=== PATIENT | male | born 1970 | race Caucasian/White ===

== ENCOUNTER 2020-07-31 18:35 | Emergency (ER) | payer OTHER ==
[~2020-07-31] VITALS: Ht 177.8 cm; Wt 77.1 kg
[2020-07-31] MEDS ORDERED: MUCINEX100 MG PO (18:54)
[2020-07-31] MEDS ORDERED: ZYRTEC10 M3 PO (18:54)
[2020-07-31] MEDS ORDERED: TOPAMAX200 MG PO (18:54)
[2020-07-31] MEDS ORDERED: LIPITOR80 MG GT (18:54)
[2020-07-31] MEDS ORDERED: FLONASE ALLERG9.9 ML NAS (18:55)
== END 2020-07-31 20:18 | disposition home or self-care (01) ==
LOC: ED 18:35
DX: J20.9 Acute bronchitis, unspecified (principal); G40.909 Epilepsy, unspecified, not intractable, without status epilepticus; Z88.8 Allergy status to other drugs, medicaments and biological substances; Z79.899 Other long term (current) drug therapy
CPT/HCPCS: 71046; 99283-25; U0003

== ENCOUNTER 2020-08-03 12:57 | Emergency (ER) | payer OTHER ==
[~2020-08-03] VITALS: Ht 177.8 cm; Wt 77.1 kg
[~2020-08-03 12:57] MED LIST: FLONASE ALLERG9.9 ML NAS; LIPITOR80 MG GT; MUCINEX100 MG PO; TOPAMAX200 MG PO; ZYRTEC10 M3 PO
--- OUTSIDE RECORDS SUMMARY | 2020-08-03 13:04 | XMS ---
PreManage Notification: DAPHNE BENJAMIN Security Vulnerability Researcher Events No recent Security Events currently on file CRITERIA MET - [facility] - 2 Visits in 30 Days CARE PROVIDERS JESENIA COKER Internal Medicine Current PHONE: Unknown JAMI LUCIANO [facility] Current PHONE: [phone] Deidre has no Care Guidelines for this patient. EMike VISIT COUNT (12 MO.) [address] [place] [address] TOTAL 2 NOTE: Visits indicate total known visits. ED/UCC VISIT TRACKING (12 MO.) 08/03/2020 12:58 NEELAM Gregory [place] TYPE: Emergency COMPLAINT: - COUGH, SOB, WEEZING 07/31/2020 18:36 NEELAM Gregory [place] TYPE: Emergency COMPLAINT: - COUGHING,SOB DIAGNOSES: - Cough - Other equipment operator intermodal yard (current) drug therapy - Epilepsy, unspecified, not intractable, without status epilepticus - Acute bronchitis, unspecified - Allergy status to other drugs, medicaments and biological substances INPATIENT VISIT TRACKING (12 MO.) No inpatient visits to display in this time frame [id number]
[2020-08-03] MEDS ORDERED: LEVOFLOXACIN750 MG PO (15:04)
== END 2020-08-03 15:29 | disposition home or self-care (01) ==
LOC: ED 12:57
DX: J20.9 Acute bronchitis, unspecified (principal); G40.909 Epilepsy, unspecified, not intractable, without status epilepticus; E78.00 Pure hypercholesterolemia, unspecified; Z88.8 Allergy status to other drugs, medicaments and biological substances; Z79.899 Other long term (current) drug therapy
CPT/HCPCS: 83880; 85025; 85379; 99284

== ENCOUNTER 2020-09-14 10:48 | Emergency (ER) | payer OTHER ==
[~2020-09-14] VITALS: Ht 177.8 cm; Wt 77.1 kg
[~2020-09-14 10:48] MED LIST changes: +DOXYCYCLINE HY100 MG PO; +LEVOFLOXACIN750 MG PO; +PREDNISONE20 MG PO; +TESSALON PERLE100 MG PO
--- OUTSIDE RECORDS SUMMARY | 2020-09-14 10:50 | XMS ---
PreManage Notification: DAPHNE BENJAMIN Security Locomotive Firer Events No recent Security Events currently on file CRITERIA MET - [facility] - 2 Visits in 30 Days CARE PROVIDERS JESENIA COKER Internal Medicine Current PHONE: Unknown JAMI LUCIANO [facility] Current PHONE: [phone] Deidre has no Care Guidelines for this patient. EMike VISIT COUNT (12 MO.) [address] [place] [address] TOTAL 4 NOTE: Visits indicate total known visits. ED/UCC VISIT TRACKING (12 MO.) 09/14/2020 10:48 NEELAM Gregory [place] TYPE: Emergency COMPLAINT: - RINGING EARS, CONFUSION 08/15/2020 08:07 NEELAM Gregory [place] TYPE: Emergency COMPLAINT: - COUGH, SOB DIAGNOSES: - Bronchitis, not specified as acute or chronic - Cough - Allergy status to other antibiotic agents - Other intermodal customer service (current) drug therapy - Epilepsy, unspecified, not intractable, without status epilepticus - Pure hypercholesterolemia, unspecified - Localized enlarged lymph nodes - Allergy status to other drugs, medicaments and biological substances 08/03/2020 12:58 NEELAM [place] TYPE: Emergency COMPLAINT: - COUGH, SOB, WEEZING DIAGNOSES: - Allergy status to other drugs, medicaments and biological substances - Other chcf (current) drug therapy - Acute bronchitis, unspecified - Shortness of breath - Epilepsy, unspecified, not intractable, without status epilepticus - Pure hypercholesterolemia, unspecified 07/31/2020 18:36 NEELAM Gregory [place] TYPE: Emergency COMPLAINT: - COUGHING,SOB DIAGNOSES: - Cough - Other intermodal customer service (current) drug therapy - Epilepsy, unspecified, not intractable, without status epilepticus - Acute bronchitis, unspecified - Allergy status to other drugs, medicaments and biological substances INPATIENT VISIT TRACKING (12 MO.) No inpatient visits to display in this time frame [id number]
[2020-09-14] MEDS ORDERED: ALBUTEROL2.5 MG/3 M INH (10:58)
[2020-09-14] MEDS ORDERED: AZELASTINE205.5 MCG/ NAS (10:58)
[2020-09-14] MEDS ORDERED: COMBIVENT RESPIM4 GM INH (10:59)
[2020-09-14] MEDS ORDERED: ADVAIR HFA 115-12 GM INH (10:59)
== END 2020-09-14 13:44 | disposition home or self-care (01) ==
LOC: ED 10:48
DX: T16.1XXA Foreign body in right ear, initial encounter (principal); H93.11 Tinnitus, right ear; E78.00 Pure hypercholesterolemia, unspecified; G40.909 Epilepsy, unspecified, not intractable, without status epilepticus; Z88.8 Allergy status to other drugs, medicaments and biological substances; Z88.1 Allergy status to other antibiotic agents; Z79.899 Other long term (current) drug therapy
CPT/HCPCS: 69200; 70450; 80053; 80201; 81001; 83735; 85025; 99283-25

== ENCOUNTER 2020-12-05 16:03 | Emergency (ER) | payer OTHER ==
[~2020-12-05] VITALS: Ht 177.8 cm; Wt 79.4 kg
[~2020-12-05 16:03] MED LIST changes: +ADVAIR HFA 115-12 GM INH; +ALBUTEROL2.5 MG/3 M INH; +AZELASTINE205.5 MCG/ NAS; +COMBIVENT RESPIM4 GM INH
--- OUTSIDE RECORDS SUMMARY | 2020-12-05 16:12 | XMS ---
PreManage Notification: DAPHNE BENJAMIN Security Taxicab Dispatcher Events No recent Security Events currently on file CRITERIA MET - ED - Positive COVID-19 Lab Result - [facility] CARE PROVIDERS JESENIA COKER Internal Medicine Current PHONE: Unknown JAMI LUCIANO [facility] Current PHONE: [phone] Deidre has no Care Guidelines for this patient. EMike VISIT COUNT (12 MO.) Krysta Feliciano TOTAL 5 NOTE: Visits indicate total known visits. ED/UCC VISIT TRACKING (12 MO.) 12/05/2020 16:04 NEELAM Gregory [place] TYPE: Emergency COMPLAINT: - COUGH 09/14/2020 10:48 NEELAM Gregory [place] TYPE: Emergency COMPLAINT: - FB,RINGING EARS, CONFUSION DIAGNOSES: - Tinnitus, right ear - Tinnitus, right ear - Foreign body in right ear, initial encounter - Allergy status to other drugs, medicaments and biological substances - Allergy status to other antibiotic agents - Other detention (current) drug therapy - Pure hypercholesterolemia, unspecified - Foreign body in right ear, initial encounter - Epilepsy, unspecified, not intractable, without status epilepticus 08/15/2020 08:07 [place] TYPE: Emergency COMPLAINT: - COUGH, SOB DIAGNOSES: - Bronchitis, not specified as acute or chronic - Cough - Allergy status to other antibiotic agents - Other detention (current) drug therapy - Epilepsy, unspecified, not intractable, without status epilepticus - Pure hypercholesterolemia, unspecified - Localized enlarged lymph nodes - Allergy status to other drugs, medicaments and biological substances 08/03/2020 12:58 NEELAM Gregory [place] TYPE: Emergency COMPLAINT: - COUGH, SOB, WEEZING DIAGNOSES: - Allergy status to other drugs, medicaments and biological substances - Other petroleum terminal plant operator (current) drug therapy - Acute bronchitis, unspecified - Shortness of breath - Epilepsy, unspecified, not intractable, without status epilepticus - Pure hypercholesterolemia, unspecified 07/31/2020 18:36 [facility] [place] TYPE: Emergency COMPLAINT: - COUGHING,SOB DIAGNOSES: - Cough - Other detention (current) drug therapy - Epilepsy, unspecified, not intractable, without status epilepticus - Acute bronchitis, unspecified - Allergy status to other drugs, medicaments and biological substances INPATIENT VISIT TRACKING (12 MO.) No inpatient visits to display in this time frame [id number]
[2020-12-05] MEDS ORDERED: LIPITOR40 MG PO (16:21)
[2020-12-05] MEDS ORDERED: AMOXICILLIN500 MG PO (18:19)
== END 2020-12-05 18:35 | disposition home or self-care (01) ==
LOC: ED 16:03
DX: J01.90 Acute sinusitis, unspecified (principal); B96.89 Other specified bacterial agents as the cause of diseases classified elsewhere; R05 Cough; G40.909 Epilepsy, unspecified, not intractable, without status epilepticus; E78.00 Pure hypercholesterolemia, unspecified; E78.5 Hyperlipidemia, unspecified; Z88.8 Allergy status to other drugs, medicaments and biological substances; Z79.899 Other long term (current) drug therapy
CPT/HCPCS: 71045; 99283-25

== ENCOUNTER 2021-04-05 19:52 | Emergency (ER) | payer OTHER ==
[~2021-04-05 19:52] MED LIST changes: +AMOXICILLIN500 MG PO; +LIPITOR40 MG PO
--- NOTE | 2021-04-06 18:14 | EKG ---
[facility] [address] [place], [place] [address] Signed Normal sinus rhythm Normal ECG When compared with ECG of 15-AUG-2020 09:18, No significant change was found Confirmed by VASHTI SHIRLEY MD ([id number]) on 04/06/2021 6:14:04 PM Electronically Signed By: VASHTI SHIRLEY MD 04/06/21 1814 PATIENT NAME: CASSIDYSAMMIEDAPHNE SYLVIA Electrocardiogram DATE OF : 68 PHYSICIAN: VASHTI SHIRLEY MD REPORT #: [id number] REPORT IS CONFIDENTIAL AND NOT TO BE RELEASED WITHOUT AUTHORIZATION
== END 2021-04-05 23:36 | disposition home or self-care (01) ==
LOC: ED 19:52
DX: R05.9 Cough, unspecified (principal); E78.00 Pure hypercholesterolemia, unspecified; G40.909 Epilepsy, unspecified, not intractable, without status epilepticus; E78.5 Hyperlipidemia, unspecified; Z88.8 Allergy status to other drugs, medicaments and biological substances; Z79.899 Other long term (current) drug therapy; Z20.822 Contact with and (suspected) exposure to COVID-19
CPT/HCPCS: 71045; 80053; 83735; 84484; 85025; 93005; 93010; 99284-25; C9803; U0003

== ENCOUNTER 2021-05-22 19:03 | Emergency (ER) | payer OTHER ==
[~2021-05-22] VITALS: Ht 175.3 cm; Wt 93.8 kg
--- OUTSIDE RECORDS SUMMARY | 2021-05-22 19:10 | XMS ---
PreManage Notification: DAPHNE BENJAMIN Security Die Grinder Events No recent Security Events currently on file CRITERIA MET - ED - Positive COVID-19 Lab Result - [facility] CARE PROVIDERS JESENIA COKER Internal Medicine Current PHONE: Unknown JAMI LUCIANO [facility] Current PHONE: Unknown Deidre has no Care Guidelines for this patient. EMike VISIT COUNT (12 MO.) Clyde Feliciano TOTAL 7 NOTE: Visits indicate total known visits. ED/UCC VISIT TRACKING (12 MO.) 05/22/2021 19:03 NEELAM Gregory [place] TYPE: Emergency COMPLAINT: - COLD SYMPTOMS 04/05/2021 19:52 NEELAM Gregory [place] TYPE: Emergency COMPLAINT: - SOB,COUGH DIAGNOSES: - Epilepsy, unspecified, not intractable, without status epilepticus - Other termination clerk (current) drug therapy - COUGH, UNSPECIFIED - Allergy status to other drugs, medicaments and biological substances - Hyperlipidemia, unspecified - Pure hypercholesterolemia, unspecified 12/05/2020 16:04 [facility] [place] TYPE: Emergency COMPLAINT: - COUGH DIAGNOSES: - Epilepsy, unspecified, not intractable, without status epilepticus - Other specified bacterial agents as the cause of diseases classified elsewhere - Other termination clerk (current) drug therapy - Hyperlipidemia, unspecified - Allergy status to other drugs, medicaments and biological substances - Cough - Pure hypercholesterolemia, unspecified - Acute sinusitis, unspecified 09/14/2020 10:48 [facility] [place] TYPE: Emergency COMPLAINT: - FB,RINGING EARS, CONFUSION DIAGNOSES: - Tinnitus, right ear - Tinnitus, right ear - Foreign body in right ear, initial encounter - Allergy status to other drugs, medicaments and biological substances - Allergy status to other antibiotic agents - Other mcfp (current) drug therapy - Pure hypercholesterolemia, unspecified - Foreign body in right ear, initial encounter - Epilepsy, unspecified, not intractable, without status epilepticus 08/15/2020 08:07 [facility] [place]inn [place] TYPE: Emergency COMPLAINT: - COUGH, SOB DIAGNOSES: - Bronchitis, not specified as acute or chronic - Cough - Allergy status to other antibiotic agents - Other termination clerk (current) drug therapy - Epilepsy, unspecified, not intractable, without status epilepticus - Pure hypercholesterolemia, unspecified - Localized enlarged lymph nodes - Allergy status to other drugs, medicaments and biological substances 08/03/2020 12:58 NEELAM Gregory [place] TYPE: Emergency COMPLAINT: - COUGH, SOB, WEEZING DIAGNOSES: - Allergy status to other drugs, medicaments and biological substances - Other mcfp (current) drug therapy - Acute bronchitis, unspecified - Shortness of breath - Epilepsy, unspecified, not intractable, without status epilepticus - Pure hypercholesterolemia, unspecified 07/31/2020 18:36 NEELAM Gregory [place] TYPE: Emergency COMPLAINT: - COUGHING,SOB DIAGNOSES: - Cough - Other termination clerk (current) drug therapy - Epilepsy, unspecified, not intractable, without status epilepticus - Acute bronchitis, unspecified - Allergy status to other drugs, medicaments and biological substances INPATIENT VISIT TRACKING (12 MO.) 01/23/2021 07:[address] [facility] TYPE: Neuro Surgery DIAGNOSES: - Generalized idiopathic epilepsy and epileptic syndromes, not intractable, without status epilepticus [id number]
[2021-05-22] MEDS ORDERED: OXCARBAZEPINE600 MG PO (21:16)
[2021-05-22] MEDS ORDERED: MYSOLINE50 MG PO (21:17)
[2021-05-22] MEDS ORDERED: PREDNISONE20 MG PO (23:10)
== END 2021-05-22 23:27 | disposition home or self-care (01) ==
LOC: ED 19:03
DX: J38.3 Other diseases of vocal cords (principal); R05.9 Cough, unspecified; Z20.822 Contact with and (suspected) exposure to COVID-19; G40.909 Epilepsy, unspecified, not intractable, without status epilepticus; E78.00 Pure hypercholesterolemia, unspecified; E78.5 Hyperlipidemia, unspecified; Z88.8 Allergy status to other drugs, medicaments and biological substances; Z79.899 Other long term (current) drug therapy
CPT/HCPCS: 71046; 99283-25; C9803; J7512; U0003

== ENCOUNTER 2021-12-23 07:33 | Emergency (ER) | payer OTHER ==
[~2021-12-23] VITALS: Ht 175.3 cm; Wt 93.4 kg
[~2021-12-23 07:33] MED LIST changes: +MYSOLINE50 MG PO; +OXCARBAZEPINE600 MG PO
[2021-12-23] MEDS ORDERED: LOSARTAN POTAS100 MG PO (10:06)
[2021-12-23] MEDS ORDERED: METFORMIN HCL500 M1 PO (10:06)
[2021-12-23] MEDS ORDERED: VIMPAT100 MG PO (10:07)
== END 2021-12-23 11:33 | disposition home or self-care (01) ==
LOC: ED 07:33
DX: U07.1 COVID-19 (principal); Z79.899 Other long term (current) drug therapy; Z79.84 Long term (current) use of oral hypoglycemic drugs
CPT/HCPCS: 87502; 99284; A9270; C9803; U0003

== ENCOUNTER 2021-12-26 15:11 | Emergency (ER) | payer OTHER ==
[~2021-12-26] VITALS: Ht 175.3 cm; Wt 93.4 kg
[~2021-12-26 15:11] MED LIST changes: +LOSARTAN POTAS100 MG PO; +METFORMIN HCL500 M1 PO; +VIMPAT100 MG PO
--- OUTSIDE RECORDS SUMMARY | 2021-12-26 15:14 | XMS ---
PreManage Notification: DAPHNE BENJAMIN Security Parts Expediter Events No recent Security Events currently on file CRITERIA MET - [facility] - 2 Visits in 30 Days CARE PROVIDERS JESENIA COKER Internal Medicine Current PHONE: Unknown JAMI LUCIANO [facility] Current PHONE: Unknown Deidre has no Care Guidelines for this patient. Ciro VISIT COUNT (12 MO.) [address] [place] [address] TOTAL 4 NOTE: Visits indicate total known visits. ED/UCC VISIT TRACKING (12 MO.) 12/26/2021 15:11 NEELAM Gregory [place] TYPE: Emergency COMPLAINT: - COUGH 12/23/2021 07:33 NEELAM Gregory [place] TYPE: Emergency COMPLAINT: - FLU SYMPTOMS DIAGNOSES: - Cough, unspecified - Other longterm (current) drug therapy - COVID-19 - prison (current) use of oral hypoglycemic drugs 05/22/2021 19:03 [facility] [place] TYPE: Emergency COMPLAINT: - COLD SYMPTOMS DIAGNOSES: - Contact with and (suspected) exposure to COVID-19 - Other diseases of vocal cords - COUGH, UNSPECIFIED - Cough, unspecified - Epilepsy, unspecified, not intractable, without status epilepticus - Hyperlipidemia, unspecified - Pure hypercholesterolemia, unspecified - Other exterminator termite (current) drug therapy - Allergy status to other drugs, medicaments and biological substances 04/05/2021 19:52 NEELAM Gregory [place] TYPE: Emergency COMPLAINT: - SOB,COUGH DIAGNOSES: - Epilepsy, unspecified, not intractable, without status epilepticus - Other longterm (current) drug therapy - Contact with and (suspected) exposure to COVID-19 - COUGH, UNSPECIFIED - Cough, unspecified - Allergy status to other drugs, medicaments and biological substances - Hyperlipidemia, unspecified - Pure hypercholesterolemia, unspecified INPATIENT VISIT TRACKING (12 MO.) 01/23/2021 07:[address] [facility] TYPE: Neuro Surgery DIAGNOSES: - Generalized idiopathic epilepsy and epileptic syndromes, not intractable, without status epilepticus [id number]
[2021-12-26] MEDS ORDERED: BENZONATATE150 MG PO (16:45)
[2021-12-26] MEDS ORDERED: PREDNISONE20 MG PO (16:45)
== END 2021-12-26 17:00 | disposition home or self-care (01) ==
LOC: ED 15:11
DX: U07.1 COVID-19 (principal); G40.909 Epilepsy, unspecified, not intractable, without status epilepticus; E78.00 Pure hypercholesterolemia, unspecified; E78.5 Hyperlipidemia, unspecified; Z88.8 Allergy status to other drugs, medicaments and biological substances; Z79.899 Other long term (current) drug therapy; Z79.84 Long term (current) use of oral hypoglycemic drugs
CPT/HCPCS: 99283

== ENCOUNTER 2022-03-22 20:36 | Emergency (ER) | payer OTHER ==
[~2022-03-22] VITALS: Ht 175.3 cm; Wt 93.4 kg
[~2022-03-22 20:36] MED LIST changes: +BENZONATATE150 MG PO
[2022-03-22] MEDS ORDERED: VITAMIN D350 MCG PO (21:03)
== END 2022-03-23 02:13 | disposition home or self-care (01) ==
LOC: ED 20:36
DX: G40.909 Epilepsy, unspecified, not intractable, without status epilepticus (principal); E78.00 Pure hypercholesterolemia, unspecified; Z88.8 Allergy status to other drugs, medicaments and biological substances; Z79.899 Other long term (current) drug therapy
CPT/HCPCS: 36415; 70450; 80053; 81001; 85025; 96374; 96375; 99284-25; J1200; J2060; Q2009

== ENCOUNTER 2022-09-03 01:26 | Emergency (ER) | payer OTHER ==
[~2022-09-03] VITALS: Ht 175.3 cm; Wt 92.7 kg
[~2022-09-03 01:26] MED LIST changes: +INCRUSE ELLI62.5 MCG IH; +NAPROSYN500 MG PO; +NORVASC10 MG PO; +PAMELOR10 MG PO; +SPIRIVA18 MCG INH; +SPIRONOLACTONE25 MG PO; +VITAMIN D350 MCG PO
[2022-09-03] MEDS ORDERED: AMOX TR-K CLV1 EAC1 PO (01:53)
[2022-09-03] MEDS ORDERED: PANTOPRAZOLE SO20 MG PO (02:04)
== END 2022-09-03 02:09 | disposition home or self-care (01) ==
LOC: ED 01:26
DX: J32.9 Chronic sinusitis, unspecified (principal); G40.909 Epilepsy, unspecified, not intractable, without status epilepticus; E78.00 Pure hypercholesterolemia, unspecified; E78.5 Hyperlipidemia, unspecified; Z88.8 Allergy status to other drugs, medicaments and biological substances; Z79.899 Other long term (current) drug therapy; Z79.84 Long term (current) use of oral hypoglycemic drugs
CPT/HCPCS: 99283

== ENCOUNTER 2022-09-08 13:09 | Emergency (ER) | payer OTHER ==
[~2022-09-08] VITALS: Ht 175.3 cm; Wt 92.7 kg
[~2022-09-08 13:09] MED LIST changes: +AMOX TR-K CLV1 EAC1 PO; +PANTOPRAZOLE SO20 MG PO
--- OUTSIDE RECORDS SUMMARY | 2022-09-08 13:10 | XMS ---
PreManage Notification: DAPHNE BENJAMIN Security Ethanol Quality Leader Events No recent Security Events currently on file CRITERIA MET - [facility] - 2 Visits in 30 Days CARE PROVIDERS -Braden- Dentist: Photographic Platemaker [facility] Dental [facility] PHONE: [phone] JESENIA COKER Internal Medicine Current PHONE: Unknown LUIS ARMANDO [facility] Current PHONE: Unknown Deidre has no Care Guidelines for this patient. E.D. VISIT COUNT (12 MO.) 5 NEELAM Felician[place] TOTAL 5 NOTE: Visits indicate total known visits. ED/UCC VISIT TRACKING (12 MO.) 09/08/2022 13:09 NEELAM Gregory [place] TYPE: Emergency COMPLAINT: - HEADACHE 09/03/2022 01:27 NEELAM [place] TYPE: Emergency COMPLAINT: - HEADACHE AND COUGH DIAGNOSES: - Epilepsy, unspecified, not intractable, without status epilepticus - Allergy status to other drugs, medicaments and biological substances - Chronic sinusitis, unspecified - Hyperlipidemia, unspecified - Pure hypercholesterolemia, unspecified - Cough, unspecified - Other detention (current) drug therapy - termite exterminator helper (current) use of oral hypoglycemic drugs 03/22/2022 20:37 [facility] G[place]elle [place] TYPE: Emergency COMPLAINT: - SEIZURE DIAGNOSES: - Other detention (current) drug therapy - Epilepsy, unspecified, not intractable, without status epilepticus - Allergy status to other drugs, medicaments and biological substances - Pure hypercholesterolemia, unspecified 12/26/2021 15:11 [facility] [place] TYPE: Emergency COMPLAINT: - COUGH DIAGNOSES: - COVID-19 - Pure hypercholesterolemia, unspecified - Epilepsy, unspecified, not intractable, without status epilepticus - Other detention (current) drug therapy - Allergy status to other drugs, medicaments and biological substances - termite exterminator helper (current) use of oral hypoglycemic drugs - Hyperlipidemia, unspecified - Cough, unspecified 12/23/2021 07:33 [facility] [place] TYPE: Emergency COMPLAINT: - FLU SYMPTOMS DIAGNOSES: - Cough, unspecified - termite exterminator helper (current) use of oral hypoglycemic drugs - Other regional intermodal truck driver (current) drug therapy - COVID-19 INPATIENT VISIT TRACKING (12 MO.) No inpatient visits to display in this time frame [id number]
[2022-09-08] MEDS ORDERED: AUGMENTIN XR 11 EACH PO (13:53)
== END 2022-09-08 14:02 | disposition home or self-care (01) ==
LOC: ED 13:09
DX: J32.9 Chronic sinusitis, unspecified (principal); G40.909 Epilepsy, unspecified, not intractable, without status epilepticus; E78.00 Pure hypercholesterolemia, unspecified; G47.33 Obstructive sleep apnea (adult) (pediatric); Z88.8 Allergy status to other drugs, medicaments and biological substances; Z79.899 Other long term (current) drug therapy; Z79.84 Long term (current) use of oral hypoglycemic drugs; Z87.442 Personal history of urinary calculi
CPT/HCPCS: 99283

== ENCOUNTER 2023-12-13 12:32 | Emergency (ER) | payer MEDICARE, OTHER ==
[~2023-12-13] VITALS: Ht 175.3 cm; Wt 84.4 kg
[~2023-12-13 12:32] MED LIST changes: +AUGMENTIN XR 11 EACH PO
[2023-12-13] MEDS ORDERED: ROSUVASTATIN CA40 MG PO (12:41)
[2023-12-13] MEDS ORDERED: FISH OIL 1,0001 EAC8 PO (12:44)
[2023-12-13] MEDS ORDERED: TRIAMCINOLONE16.9 ML NS (12:44)
[2023-12-13] MEDS ORDERED: LACOSAMIDE200 MG PO (12:44)
[2023-12-13] MEDS ORDERED: MUPIROCIN22 GM TOP (12:44)
[2023-12-13] MEDS ORDERED: KETOROLAC TROMETHAMINE 30 MG/ML VIAL IV ONE (13:00)
[2023-12-13 13:02] LABS: MCHC 33.3 g/dl (30-36)
[2023-12-13 13:06] LABS: BASOPHILS 0.4 % (0-2); EOSINOPHILS 1.6 % (0-6); HEMATOCRIT 51.4 % (35.0-50.0); HEMOGLOBIN 17.1 g/dL (12.0-18.0); LYMPHOCYTES 22.7 % (24-44); MCH 31.2 (27-36); MCV 93.7 fl (81-99); MONOCYTES 10.9 % (0-12); NEUTROPHILS 64.4 % (39-80); PLATELET COUNT 257 K/uL (140-440); RBC 5.48 M/ul (4.3-5.7); RDW 13.3 (10.5-15.0)
[2023-12-13 13:19] LABS: ALBUMIN 4.2 g/dL (3.4-5.0); ALBUMIN/GLOBULIN RATIO 1.27 (1.1-2.4); ANION GAP 12.8 (7-21); BILIRUBIN, TOTAL 0.9 ng/dL (0.2-1.0); BUN/CREATININE RATIO 6.61 (6.0-28.6); CREATININE, SERUM 1.21 mg/dL (0.70-1.30); POTASSIUM 3.8 mmol/L (3.5-5.1); PROTEIN, TOTAL 7.5 g/dL (6.4-8.2)
[2023-12-13 14:05] VITALS: BP 128/79
--- NOTE | 2023-12-14 23:23 | EKG ---
[facility] [address] [place] [address] Signed Normal sinus rhythm Normal ECG When compared with ECG of 05-JUN-2022 13:48, Nonspecific T wave abnormality, improved in Inferior leads Confirmed by Clare Evans MD () on 12/14/2023 11:23:10 PM Electronically Signed By: CLARE EVANS MD 12/14/23 2323 PATIENT NAME: CASSIDYDAPHNE SYLVIA Electrocardiogram DATE OF : 68 PHYSICIAN: CLARE EVANS MD REPORT #: [id number] REPORT IS CONFIDENTIAL AND NOT TO BE RELEASED WITHOUT AUTHORIZATION
== END 2023-12-13 14:06 | disposition home or self-care (01) ==
LOC: ED 12:32
PROVIDERS: Emergency Medicine
DX: R07.9 Chest pain, unspecified (principal); E78.5 Hyperlipidemia, unspecified; Z88.8 Allergy status to other drugs, medicaments and biological substances; Z79.899 Other long term (current) drug therapy
CPT/HCPCS: 36415; 71045; 80053; 84484; 85025; 93005; 93010; 96374; 99285; J1885

== ENCOUNTER 2024-04-14 18:16 | Emergency (ER) | payer MEDICARE ==
[~2024-04-14] VITALS: Ht 175.3 cm; Wt 85.5 kg
[~2024-04-14 18:16] MED LIST changes: +FISH OIL 1,0001 EAC8 PO; +LACOSAMIDE200 MG PO; +MUPIROCIN22 GM TOP; +ROSUVASTATIN CA40 MG PO; +TRIAMCINOLONE16.9 ML NS
[2024-04-14 21:10] LABS: INFLUENZA B NAA NEGATIVE (NEGATIVE); RESPIRATORY SYNCYTIAL VIR NAA NEGATIVE (NEGATIVE)
[2024-04-14] MEDS ORDERED: METRONIDAZOLE500 MG PO (22:13)
[2024-04-14] MEDS ORDERED: metroNIDAZOLE 250 MG HOME.PACK PO ONE (22:15)
[2024-04-14] MEDS ORDERED: methylPREDNISolone 4 MG HOME.PACK PO ONE (22:15)
[2024-04-14 22:20] VITALS: BP 128/79
== END 2024-04-14 22:20 | disposition home or self-care (01) ==
LOC: ED 18:16
PROVIDERS: Family Medicine
DX: J32.0 Chronic maxillary sinusitis (principal); Z88.8 Allergy status to other drugs, medicaments and biological substances; Z79.899 Other long term (current) drug therapy; Z11.52 Encounter for screening for COVID-19
CPT/HCPCS: 70486; 71045; 87502; 99284-25; U0002

== ENCOUNTER 2024-05-25 13:30 | Emergency (ER) | payer MEDICARE ==
[~2024-05-25] VITALS: Ht 175.3 cm; Wt 85.0 kg
[~2024-05-25 13:30] MED LIST changes: +METRONIDAZOLE500 MG PO
[2024-05-25 14:15] VITALS: BP 147/93
== END 2024-05-25 14:15 | disposition home or self-care (01) ==
LOC: ED 13:30
DX: T16.2XXA Foreign body in left ear, initial encounter (principal); G40.909 Epilepsy, unspecified, not intractable, without status epilepticus; E78.00 Pure hypercholesterolemia, unspecified; E78.5 Hyperlipidemia, unspecified; G47.33 Obstructive sleep apnea (adult) (pediatric); Z88.8 Allergy status to other drugs, medicaments and biological substances; Z79.899 Other long term (current) drug therapy; W44.8XXA Other foreign body entering into or through a natural orifice, initial encounter
CPT/HCPCS: 69200; 99282

== ENCOUNTER 2024-05-30 16:18 | Emergency (ER) | payer MEDICARE ==
[~2024-05-30] VITALS: Ht 175.3 cm; Wt 83.7 kg
--- OUTSIDE RECORDS SUMMARY | 2024-05-30 16:25 | XMS ---
PreManage Notification: DAPHNE BENJAMIN Security Board Design Engineer Events No recent Security Events currently on file CRITERIA MET - [facility] - 2 Visits in 30 Days CARE PROVIDERS -, [facility] Dentist: Health Information Assistant [facility] [place]aden PHONE: [phone] -Braden- Dentist: Health Information Assistant [facility] Dental [facility] PHONE: [phone] DOMENIC LEE Physician Child Care Centre Manager Macy AMOSSEPH PHONE: [phone] HANY FALCON Physician Child Care Centre Manager Current PHONE: [phone] JESENIA COKER Internal Medicine Current PHONE: Unknown Deidre has no Care Guidelines for this patient. Ciro VISIT COUNT (12 MO.) [address] [facility] TOTAL 4 NOTE: Visits indicate total known visits. ED/UCC VISIT TRACKING (12 MO.) 05/30/2024 16:18 NEELAM [place] TYPE: Emergency COMPLAINT: - SOB/COUGH 05/25/2024 13:30 NEELAM [place] TYPE: Emergency COMPLAINT: - FOREIGN OBJECT DIAGNOSES: - Allergy status to other drugs, medicaments and biological substances - Epilepsy, unspecified, not intractable, without status epilepticus - Foreign body in left ear, initial encounter - Hyperlipidemia, unspecified - Obstructive sleep apnea (adult) (pediatric) - Other foreign body entering into or through a natural orifice, initial encounter - Other nursing home (current) drug therapy - Pure hypercholesterolemia, unspecified 04/14/2024 18:17 NEELAM Gregory [place] TYPE: Emergency COMPLAINT: - HEADACHE DIAGNOSES: - Allergy status to other drugs, medicaments and biological substances - Chronic maxillary sinusitis - Cough, unspecified - Encounter for screening for COVID-19 - Headache, unspecified - Other nursing home (current) drug therapy - Postnasal drip 12/13/2023 12:[address] [facility] [place] TYPE: Emergency COMPLAINT: - CHEST PAIN DIAGNOSES: - Allergy status to other drugs, medicaments and biological substances - Chest pain, unspecified - Hyperlipidemia, unspecified - Other intermodal dispatcher (current) drug therapy INPATIENT VISIT TRACKING (12 MO.) No inpatient visits to display in this time frame [id number]
[2024-05-30 18:11] LABS: INFLUENZA B NAA NEGATIVE (NEGATIVE); RESPIRATORY SYNCYTIAL VIR NAA NEGATIVE (NEGATIVE)
[2024-05-30 19:45] VITALS: BP 113/83
== END 2024-05-30 19:45 | disposition home or self-care (01) ==
LOC: ED 16:18
PROVIDERS: Emergency Medicine
DX: J06.9 Acute upper respiratory infection, unspecified (principal); E78.00 Pure hypercholesterolemia, unspecified; G40.909 Epilepsy, unspecified, not intractable, without status epilepticus; Z88.8 Allergy status to other drugs, medicaments and biological substances; Z79.899 Other long term (current) drug therapy
CPT/HCPCS: 87502; 87651; 99284; U0002

== ENCOUNTER 2024-06-11 18:16 | Emergency (ER) | payer MEDICARE ==
[~2024-06-11] VITALS: Ht 175.3 cm; Wt 83.5 kg
--- OUTSIDE RECORDS SUMMARY | 2024-06-11 19:51 | XMS ---
PreManage Notification: DAPHNE BENJAMIN Security Ladies' Locker Room Attendant Events No recent Security Events currently on file CRITERIA MET - [facility] - 2 Visits in 30 Days CARE PROVIDERS -, [facility] Dentist: Journeyman Lineman [facility] [place] PHONE: [phone] -Braden- Dentist: Journeyman Lineman [facility] Dental [facility] PHONE: [phone] DOMENIC LEE Physician Char Conveyor Tender Cellar Macy AMOSSEPH PHONE: [phone] HANY FALCON Physician Char Conveyor Tender Cellar Current PHONE: [phone] JESENIA COKER Internal Medicine Current PHONE: Unknown Deidre has no Care Guidelines for this patient. Ciro VISIT COUNT (12 MO.) [address] [facility] TOTAL 5 NOTE: Visits indicate total known visits. ED/UCC VISIT TRACKING (12 MO.) 06/11/2024 18:16 NEEL[facility] [place] TYPE: Emergency COMPLAINT: - SHORTNESS OF BREATH 05/30/2024 16:18 NEEL[facility] [place] TYPE: Emergency COMPLAINT: - SOB/COUGH DIAGNOSES: - Acute upper respiratory infection, unspecified - Allergy status to other drugs, medicaments and biological substances - Epilepsy, unspecified, not intractable, without status epilepticus - Other retirement (current) drug therapy - Pure hypercholesterolemia, unspecified - Shortness of breath 05/25/2024 13:30 [facility] [place] TYPE: Emergency COMPLAINT: - FOREIGN OBJECT DIAGNOSES: - Allergy status to other drugs, medicaments and biological substances - Epilepsy, unspecified, not intractable, without status epilepticus - Foreign body in left ear, initial encounter - Hyperlipidemia, unspecified - Obstructive sleep apnea (adult) (pediatric) - Other foreign body entering into or through a natural orifice, initial encounter - Other keno terminal operator (current) drug therapy - Pure hypercholesterolemia, unspecified 04/14/2024 18:17 NEEL[facility] [place] TYPE: Emergency COMPLAINT: - HEADACHE DIAGNOSES: - Allergy status to other drugs, medicaments and biological substances - Chronic maxillary sinusitis - Cough, unspecified - Encounter for screening for COVID-19 - Headache, unspecified - Other keno terminal operator (current) drug therapy - Postnasal drip 12/13/2023 12:32 NEEL[facility] [place] TYPE: Emergency COMPLAINT: - CHEST PAIN DIAGNOSES: - Allergy status to other drugs, medicaments and biological substances - Chest pain, unspecified - Hyperlipidemia, unspecified - Other keno terminal operator (current) drug therapy INPATIENT VISIT TRACKING (12 MO.) No inpatient visits to display in this time frame [id number]
[2024-06-11 20:52] LABS: INFLUENZA B NAA NEGATIVE (NEGATIVE); RESPIRATORY SYNCYTIAL VIR NAA NEGATIVE (NEGATIVE)
[2024-06-11] MEDS ORDERED: GUAIFENESIN/CODEINE 60 ML HOME.PACK PO ONE (21:15)
[2024-06-11] MEDS ORDERED: methylPREDNISolone 4 MG HOME.PACK PO ONE (21:15)
[2024-06-11 21:26] VITALS: BP 103/52
== END 2024-06-11 21:26 | disposition home or self-care (01) ==
LOC: ED 18:16
PROVIDERS: Family Medicine
DX: J40 Bronchitis, not specified as acute or chronic (principal); E78.00 Pure hypercholesterolemia, unspecified; G47.33 Obstructive sleep apnea (adult) (pediatric); Z88.8 Allergy status to other drugs, medicaments and biological substances; Z79.899 Other long term (current) drug therapy
CPT/HCPCS: 71045; 87502; 99283-25; U0002

== ENCOUNTER 2025-03-30 23:18 | Emergency (ER) | payer MEDICARE ==
[~2025-03-30] VITALS: Ht 175.3 cm; Wt 88.0 kg
[2025-03-30] MEDS ORDERED: [UNRECOGNIZED DRUG - OTHER] PO (23:25)
[2025-03-30] MEDS ORDERED: BREYNA 80-4.510.3 GM IH (23:25)
[2025-03-30] MEDS ORDERED: BACLOFEN10 MG PO (23:25)
[2025-03-30] MEDS ORDERED: GABAPENTIN300 MG PO (23:26)
[2025-03-30] MEDS ORDERED: SODIUM CHLORIDE 0.9% 1,000 ML IV ONE (23:30)
[2025-03-30] MEDS ORDERED: HYDROmorphone HCL 1 MG/ML SYR IV PRN (23:30)
[2025-03-30 23:32] LABS: BASOPHILS 0.3 % (0.2-1.2); EOSINOPHILS 1.4 % (0.8-7.0); LYMPHOCYTES 24.5 % (21.8-53.1); MCH 31.1 PG (25.7-32.2); MCHC 34.3 g/dL (32.3-36.5); MCV 90.6 fL (79.0-92.2); MONOCYTES 9.1 % (5.3-12.2); NEUTROPHILS 63.8 % (34.0-67.9); RBC 5.12 M/uL (4.63-6.08)
[2025-03-30 23:46] LABS: ALT (SGPT) 35.0 U/L (14-59); AST (SGOT) 13.0 U/L (15-37); GLOMERULAR FILTRATION RATE,EST 67.0 mL/min (>60); PROTEIN, TOTAL 7.1 g/dL (6.4-8.2); UREA NITROGEN 13.0 mg/dL (7-18)
[2025-03-31 00:22] LABS: BLOOD/HGB, URINE NEGATIVE (Negative); KETONE, URINE NEGATIVE (Negative); LEUK ESTERASE, URINE NEGATIVE (negative); NITRITE, URINE NEGATIVE (negative)
[2025-03-31] MEDS ORDERED: ONDANSETRON ODT8 MG PO (00:45)
[2025-03-31] MEDS ORDERED: HYDROCODONE BIT/ACETAMINOPHEN 5/325 MG 1 TAB HOME.PACK PO ONE (00:45)
[2025-03-31] MEDS ORDERED: ONDANSETRON 4 MG HOME.PACK SL ONE (00:45)
[2025-03-31] MEDS ORDERED: HYDROCODON-ACE1 EA10 PO (00:45)
[2025-03-31 01:02] VITALS: BP 155/105
== END 2025-03-31 01:05 | disposition home or self-care (01) ==
LOC: ED 23:18
PROVIDERS: Family Medicine
DX: R10.A1 Flank pain, right side (principal); E78.00 Pure hypercholesterolemia, unspecified; G47.33 Obstructive sleep apnea (adult) (pediatric); Z87.442 Personal history of urinary calculi; Z88.8 Allergy status to other drugs, medicaments and biological substances; Z79.51 Long term (current) use of inhaled steroids; Z79.84 Long term (current) use of oral hypoglycemic drugs; Z79.899 Other long term (current) drug therapy
CPT/HCPCS: 36415; 74176; 80053; 81003; 85025; 96374; 96375; 99284-25; A9270; J1171; J2405; J7030

== ENCOUNTER 2025-05-04 10:59 | Emergency (ER) | payer MEDICARE ==
[~2025-05-04] VITALS: Ht 175.3 cm; Wt 86.4 kg
[~2025-05-04 10:59] MED LIST changes: +BACLOFEN10 MG PO; +BREYNA 80-4.510.3 GM IH; +GABAPENTIN300 MG PO; +HYDROCODON-ACE1 EA10 PO; +ONDANSETRON ODT8 MG PO; +[UNRECOGNIZED DRUG - OTHER] PO
--- OUTSIDE RECORDS SUMMARY | 2025-05-04 11:00 | XMS ---
PreManage Notification: DAPHNE BENJAMIN Security Print Producer Events No recent Security Events currently on file CRITERIA MET - [facility] CARE PROVIDERS -, [facility] Dentist: Back Closer Current [place] PHONE: [phone] -Braden- Dentist: Back Closer [facility] Dental [facility] PHONE: [phone] DOMENIC LEE Physician Quality Tech [facility] PHONE: [phone] JESENIA COKER Internal Medicine Current PHONE: Unknown Deidre has no Care Guidelines for this patient. Ciro VISIT COUNT (12 MO.) 5 NEELAM [place] TOTAL 5 NOTE: Visits indicate total known visits. ED/UCC VISIT TRACKING (12 MO.) 05/04/2025 10:59 [facility] [place] TYPE: Emergency COMPLAINT: - LEFT KNEED PAIN 03/30/2025 23:19 [facility] [place] TYPE: Emergency COMPLAINT: - FLANK PAIN DIAGNOSES: - Allergy status to other drugs, medicaments and biological substances - Flank pain, right side - alf (current) use of inhaled steroids - alf (current) use of oral hypoglycemic drugs - Obstructive sleep apnea (adult) (pediatric) - Other retirement (current) drug therapy - Personal history of urinary calculi - Pure hypercholesterolemia, unspecified 06/11/2024 18:16 NE[facility] [place] TYPE: Emergency COMPLAINT: - SHORTNESS OF BREATH DIAGNOSES: - Acute upper respiratory infection, unspecified - Allergy status to other drugs, medicaments and biological substances - Bronchitis, not specified as acute or chronic - Obstructive sleep apnea (adult) (pediatric) - Other retirement (current) drug therapy - Pure hypercholesterolemia, unspecified 05/30/2024 16:18 NEELAM Gregory [place] TYPE: Emergency COMPLAINT: - SOB/COUGH DIAGNOSES: - Acute upper respiratory infection, unspecified - Allergy status to other drugs, medicaments and biological substances - Epilepsy, unspecified, not intractable, without status epilepticus - Other meterman (current) drug therapy - Pure hypercholesterolemia, unspecified - Shortness of breath 05/25/2024 13:[address] [facility] [place] TYPE: Emergency COMPLAINT: - FOREIGN OBJECT DIAGNOSES: - Allergy status to other drugs, medicaments and biological substances - Epilepsy, unspecified, not intractable, without status epilepticus - Foreign body in left ear, initial encounter - Hyperlipidemia, unspecified - Obstructive sleep apnea (adult) (pediatric) - Other foreign body entering into or through a natural orifice, initial encounter - Other meterman (current) drug therapy - Pure hypercholesterolemia, unspecified INPATIENT VISIT TRACKING (12 MO.) No inpatient visits to display in this time frame [id number]
[2025-05-04] MEDS ORDERED: MOUNJARO2.5 MG/0.5 (12:35)
[2025-05-04 16:31] VITALS: BP 136/95
== END 2025-05-04 17:00 | disposition home or self-care (01) ==
LOC: ED 10:59
DX: M25.562 Pain in left knee (principal); K21.9 Gastro-esophageal reflux disease without esophagitis; E78.5 Hyperlipidemia, unspecified; G47.33 Obstructive sleep apnea (adult) (pediatric); Z79.899 Other long term (current) drug therapy; Z79.84 Long term (current) use of oral hypoglycemic drugs; Z88.1 Allergy status to other antibiotic agents; Z88.8 Allergy status to other drugs, medicaments and biological substances
CPT/HCPCS: 73560; 99283